=== PATIENT | female | born 1940 | race Caucasian/White ===

== ENCOUNTER 2021-07-07 13:13 | Outpatient (REF) | payer MEDICARE, OTHER, SELFPAY ==
--- NOTE | ~2021-07-07 | CT_ITS ---
EXAMINATION: CT HEAD WITHOUT CONTRAST CLINICAL INFORMATION: Acute intractable headaches COMPARISON: None TECHNIQUE: Contiguous axial imaging was performed from the skull base to vertex without intravenous administration of contrast. This CT examination was performed using dose optimization techniques as appropriate, variously including the following: *Automated exposure control *Adjustment of mA and/or kV according to patient size (this includes techniques or standardized protocols for targeted exams where dose is matched to indication/reason for exam; i.e. extremities or head) *Use of iterative reconstruction technique DLP: 730 mGy-cm FINDINGS: There is no evidence of acute intracranial hemorrhage or territorial infarction. No abnormal mass effect or midline shift is seen. Hare to white matter differentiation is well preserved. No extra-axial fluid collections are identified. The ventricles, sulci, and cisterns are prominent consistent with generalized atrophy. There is periventricular white matter low density consistent with microangiopathy. 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 The osseous structures and soft tissues are normal. The mastoid air cells and visualized portions of the paranasal sinuses are well aerated other than for a lateral aspect of the right frontal sinus.. No bone destruction or expansion of the sinus is seen. CT/CT head/brain wo con IMPRESSION: No acute intracranial pathology. Changes of microangiopathy. Small region of opacified right frontal sinus laterally.
== END 2021-07-07 13:14 | disposition home or self-care (01) ==
LOC: HO.CT 13:13
PROVIDERS: PCP Family Medicine; Visit Provider Family Medicine
DX: R51.9 Headache, unspecified (principal); S09.90XD Unspecified injury of head, subsequent encounter
CPT/HCPCS: 70450